=== PATIENT | female | born 1965 | race African-American/Black ===

== ENCOUNTER 2019-09-19 13:28 | Emergency (ER) | payer BC ==
[~2019-09-19] VITALS: Ht 165.1 cm; Wt 63.6 kg
[2019-09-19 14:16] LABS: BASO # 0.1 x10^3/uL (0.0-0.2); BASO % 1 % (0-3); EOS # 0.1 x10^3/uL (0.0-0.7); EOS % 1 % (0-3); HEMATOCRIT 40.1 % (36.0-47.0); HEMOGLOBIN 13.8 g/dL (12.0-15.5); LYMPH # 3.3 x10^3/uL (1.0-4.8); LYMPH % 41 % (24-48); MEAN CORPUSCULAR HEMOGLOBIN 32 pg (25-35); MEAN CORPUSCULAR HGB CONC 34 g/dL (31-37); MEAN CORPUSCULAR VOLUME 94 fL (79-100); MONO # 0.5 x10^3/uL (0.0-1.1); MONO % 6 % (0-9); NEUT % 51 % (31-73); PLATELET COUNT 361 x10^3/uL (140-400); RED BLOOD COUNT 4.27 x10^6/uL (3.50-5.40); RED CELL DISTRIBUTION WIDTH 12.7 % (11.5-14.5); WHITE BLOOD COUNT 7.9 x10^3/uL (4.0-11.0)
[2019-09-19 14:25] LABS: CALCIUM 9.5 mg/dL (8.5-10.1); CREATININE 0.7 mg/dL (0.6-1.0); GFR 87.2; POTASSIUM 3.7 mmol/L (3.5-5.1)
--- NOTE | 2019-09-19 14:31 | RAD ---
PORTABLE CHEST 1V History: Chest pain Comparison: None. Findings: Single view of the chest is submitted. There is no infiltrate, pneumothorax, or effusion. The pericardial cardiac silhouette is within normal limits in size. Impression: 1. There is no radiographic evidence of acute cardiopulmonary disease. Electronically signed by: Jasiel Chun MD (09/19/2019 2:28 PM) [facility]
[2019-09-19 14:33] LABS: ALBUMIN 3.8 g/dL (3.4-5.0); MAGNESIUM 1.9 mg/dL (1.8-2.4); TOTAL BILIRUBIN 0.3 mg/dL (0.2-1.0); TOTAL PROTEIN 7.5 g/dL (6.4-8.2)
[2019-09-19 15:58] VITALS: BP 136/86
[2019-09-19] MEDS ORDERED: IOHEXOL 350 MG/ML 100 ML VIAL. IV ONE (16:00)
[2019-09-19] MEDS ORDERED: CONTRAST GIVEN. MC PRN (16:15)
--- NOTE | 2019-09-19 16:35 | RAD ---
Examination: CT angiography chest HISTORY: History of chest pain, shortness of breath COMPARISON: None available Technique: Axial CT angiographic images of chest were performed with IV contrast. Coronal and sagittal 3-D MIP reformats are performed Exposure: One or more of the following individualized dose reduction techniques were utilized for this examination: 1. Automated exposure control 2. Adjustment of the mA and/or kV according to patient size 3. Use of iterative reconstruction technique FINDINGS: The visualized thyroid gland grossly appears unremarkable. Central airways are patent. Heart size grossly appears unremarkable. Aberrant right subclavian artery is identified. There is no evidence of filling defect identified in the main pulmonary arterial trunk and right and left main pulmonary arteries and the visualized lobar, segmental branch of the pulmonary arteries. Mild bibasilar lung airspace opacities likely atelectasis or infiltrates. The visualized liver, spleen, adrenals grossly appears unremarkable. Mild degenerative changes thoracic spine. IMPRESSION: 1. No evidence of pulmonary embolism. 2. Mild bibasilar lung airspace opacities likely atelectasis or infiltrates. Electronically signed by: Jsoh Peres MD (09/19/2019 4:32 PM) [id number]
[2019-09-19] MEDS ORDERED: LEVO750T31 PO (17:35)
--- NOTE | 2019-09-19 17:36 | PHYS DOC ---
Past Medical History Past Medical History: Anxiety, Depression, GERD, High Cholesterol, Other Additional Past Medical Histor: IBS Past Surgical History: Cholecystectomy, Hysterectomy Smoking Status: Former Smoker Alcohol Use: None General Adult EDM: Chief Complaint: CHEST PAIN HPI: HPI: Patient is a 54 year old female who presented to the hospital for evaluation of sharp chest pain with non productive cough with shortness air for about 3 days. The pain is intermittent , lasted for a few minutes, hurt worse with cough or taking a deep breath. Patient denied any fever, no recent sick contact. NO recent travel or operation. patient denied any family history of heart disease, no history of diabetic or CAD. Patient has history of anxiety and high cholesterol. Review of Systems: Review of Systems: Constitutional: Denies fever or chills. [] Eyes: Denies change in visual acuity. [] HENT: Denies nasal congestion or sore throat. [] Respiratory: Denies cough or shortness of breath. [] Cardiovascular: Denies chest pain or edema. [] GI: Denies abdominal pain, nausea, vomiting, bloody stools or diarrhea. [] : Denies dysuria. [] Musculoskeletal: Denies back pain or joint pain. [] Integument: Denies rash. [] Neurologic: Denies headache, focal weakness or sensory changes. [] Endocrine: Denies polyuria or polydipsia. [] Lymphatic: Denies swollen glands. [] Psychiatric: Denies depression or anxiety. [] Heart Score: HEART Score for Chest Pain: HEART Score for Chest Pain Response (Comments) Value History Slighlty/Non-Suspicious 0 ECG Normal 0 Age >45 - < 65 1 Risk Factors 1 or 2 Risk Factors 1 Troponin < Normal Limit 0 Total 2 Risk Factors: Risk Factors: DM, Current or recent (<one month) smoker, HTN, HLP, family history of CAD, obesity. Risk Scores: Score 0 - 3: 2.5% MACE over next 6 weeks - Discharge Home Score 4 - 6: 20.3% MACE over next 6 weeks - Admit for Clinical Observation Score 7 - 10: 72.7% MACE over next 6 weeks - Early Invasive Strategies Current Medications: Current Medications Medications (Trade) Dose Ordered Sig/Kendall Start Time Stop Time Status Last Admin Dose Admin Info (CONTRAST GIVEN -- Rx MONITORING) 1 each PRN DAILY PRN 09/19/19 16:15 09/21/19 16:14 Iohexol (Omnipaque 350 Mg/ml) 90 ml 1X ONCE 09/19/19 16:00 09/19/19 16:07 DC 09/19/19 16:00 90 ML Allergies: Allergies: Allergies Coded Allergies Type Severity Reaction Last Updated Verified medroxyprogesterone Adverse Reaction Intermediate 09/19/19 Yes metronidazole Adverse Reaction Intermediate 09/19/19 Yes Physical Exam: PE: Constitutional: Well developed, well nourished, no acute distress, non-toxic appearance. [] HENT: Normocephalic, atraumatic, bilateral external ears normal, oropharynx moist, no oral exudates, nose normal. [] Eyes: PERRLA, EOMI, conjunctiva normal, no discharge. [] Neck: Normal range of motion, no tenderness, supple, no stridor. [] Cardiovascular:Heart rate regular rhythm, no murmur [] Lungs & Thorax: Bilateral breath sounds clear to auscultation [] Abdomen: Bowel sounds normal, soft, no tenderness, no masses, no pulsatile masses. [] Skin: Warm, dry, no erythema, no rash. [] Back: No tenderness, no CVA tenderness. [] Extremities: No tenderness, no cyanosis, no clubbing, ROM intact, no edema. [] Neurologic: Alert and oriented X 3, normal motor function, normal sensory function, no focal deficits noted. [] Psychologic: Affect normal, judgement normal, mood normal. [] Current Patient Data: Labs: Laboratory Tests Test 09/19/19 13:35 White Blood Count 7.9 x10^3/uL (4.0-11.0) Red Blood Count 4.27 x10^6/uL (3.50-5.40) Hemoglobin 13.8 g/dL (12.0-15.5) Hematocrit 40.1 % (36.0-47.0) Mean Corpuscular Volume 94 fL (79-100) Mean Corpuscular Hemoglobin 32 pg (25-35) Mean Corpuscular Hemoglobin Concent 34 g/dL (31-37) Red Cell Distribution Width 12.7 % (11.5-14.5) Platelet Count 361 x10^3/uL (140-400) Neutrophils (%) (Auto) 51 % (31-73) Lymphocytes (%) (Auto) 41 % (24-48) Monocytes (%) (Auto) 6 % (0-9) Eosinophils (%) (Auto) 1 % (0-3) Basophils (%) (Auto) 1 % (0-3) Neutrophils # (Auto) 4.0 x10^3/uL (1.8-7.7) Lymphocytes # (Auto) 3.3 x10^3/uL (1.0-4.8) Monocytes # (Auto) 0.5 x10^3/uL (0.0-1.1) Eosinophils # (Auto) 0.1 x10^3/uL (0.0-0.7) Basophils # (Auto) 0.1 x10^3/uL (0.0-0.2) D-Dimer (Martina) < 0.27 ug/mlFEU Sodium Level 134 mmol/L (136-145) L Potassium Level 3.7 mmol/L (3.5-5.1) Chloride Level 98 mmol/L (98-107) Carbon Dioxide Level 24 mmol/L (21-32) Anion Gap 12 (6-14) Blood Urea Nitrogen 10 mg/dL (7-20) Creatinine 0.7 mg/dL (0.6-1.0) Estimated GFR (Cockcroft-Gault) 87.2 BUN/Creatinine Ratio 14 (6-20) Glucose Level 108 mg/dL (70-99) H Calcium Level 9.5 mg/dL (8.5-10.1) Magnesium Level 1.9 mg/dL (1.8-2.4) Total Bilirubin 0.3 mg/dL (0.2-1.0) Aspartate Amino Transferase (AST) 22 U/L (15-37) Alanine Aminotransferase (ALT) 24 U/L (14-59) Alkaline Phosphatase 53 U/L (46-116) Troponin I Quantitative < 0.017 ng/mL (0.000-0.055) XY-Ibv-Z-Type Natriuretic Peptide 33 pg/mL (0-124) Total Protein 7.5 g/dL (6.4-8.2) Albumin 3.8 g/dL (3.4-5.0) Albumin/Globulin Ratio 1.0 (1.0-1.7) Laboratory Tests 09/19/19 13:35 Laboratory Tests 09/19/19 13:35 Vital Signs: Vital Signs Date Time Temp Pulse Resp B/P (MAP) Pulse Ox O2 Delivery O2 Flow Rate FiO2 09/19/19 13:30 98.6 88 18 159/95 (116) 100 Room Air 98.6 EKG: EKG: EKG was done at 1336, heart rate of 79 bpm, sinus rhythm, left axis, no ST se gment elevation, normal QT interval. EKG was read by this physician. Radiology/Procedures: Radiology/Procedures: [][facility] [address] [place] [address] IMAGING REPORT Signed PATIENT: KUSH PAIZACCOUNT: [id number] : 1965 LOCATION: ER AGE: 54 SEX: F EXAM STATUS: REG ER ORD. PHYSICIAN: ERICKA RAMIREZ DO REASON: CHEST PAIN, SOA SINCE 2 DAYS PROCEDURE: CT ANGIOGRAPHY CHEST Examination: CT angiography chest HISTORY: History of chest pain, shortness of breath COMPARISON: None available Technique: Axial CT angiographic images of chest were performed with IV contrast. Coronal and sagittal 3-D MIP reformats are performed Exposure: One or more of the following individualized dose reduction techniques were utilized for this examination: 1. Automated exposure control 2. Adjustment of the mA and/or kV according to patient size 3. Use of iterative reconstruction technique FINDINGS: The visualized thyroid gland grossly appears unremarkable. Central airways are patent. Heart size grossly appears unremarkable. Aberrant right subclavian artery is identified. There is no evidence of filling defect identified in the main pulmonary arterial trunk and right and left main pulmonary arteries and the visualized lobar, segmental branch of the pulmonary arteries. Mild bibasilar lung airspace opacities likely atelectasis or infiltrates. The visualized liver, spleen, adrenals grossly appears unremarkable. Mild degenerative changes thoracic spine. IMPRESSION: 1. No evidence of pulmonary embolism. 2. Mild bibasilar lung airspace opacities likely atelectasis or infiltrates. Electronically signed by: Josh Peres MD (09/19/2019 4:32 PM) [id number] DICTATED and SIGNED BY: JOSH PERES MD DATE: 09/19/19 1632 Course & Med Decision Making: Course & Med Decision Making Pertinent Labs and Imaging studies reviewed. (See chart for details) CHEST PAIN, NONSPECIFIC: The patient presents today with chest pain lasting for a few minutes. The quality of the pain is very atypical for acute coronary syndrome. Additionally, the patient has minimal risk factors for coronary artery disease with a suggestion of good exercise tolerance and does not have ongoing chest pain. Given the duration of the chest pain with cardiac enzymes returning within normal limits, I do feel that from a risk stratification standpoint, the patient can be safely discharged home for outpatient evaluation by the primary care physician. The patient, however, fully understands that the evaluation today in no way rules out coronary artery disease as a possibility and that close followup is necessary as a component of a complete evaluation. The patient also understands that should the pain change, or become more frequent, more intense, or should the patient develop new symptoms, the patient is instructed to return immediately to the emergency room for reevaluation. However, at this time, given the lack of significant risk factors in conjunction with an atypical history in conjunction with normal enzymes despite the duration of pain and an unchanged or normal EKG, I do feel that the information available to us at this time suggests that this is unlikely to represent acute plaque rupture and that the risk of morbidity or mortality is low. Also considered today was the possibility of a pneumothorax, pneumonia, pulmonary embolus, mediastinitis, and thoracic aortic dissection. However, after careful consideration of the patient's clinical history and presentation and findings, there is no evidence to suggest any of these as a likely diagnosis and therefore feel that the continued pursuit of these etiologies is not warranted at this time. Therese Disclaimer: Therese Disclaimer: This electronic medical record was generated, in whole or in part, using a voice recognition dictation system. Departure Departure Impression: Primary Impression: Chest pain Additional Impression: Pneumonia Disposition: 01 HOME, SELF-CARE Condition: STABLE Referrals: ZOHRA CAMERON MD (PCP) please follow up with your doctor for reevaluation in two days Patient Instructions: Chest Pain (Nonspecific), Pneumonia, Adult Additional Instructions: Thank you for visiting our Emergency Department. We appreciate you trusting us with your care. If any additional problems come up don't hesitate to return to visit us. Please follow up with your primary care provider so they can plan additional care if needed and know about the problem that you had. If symptoms worsen come back to the Emergency Department. Any concerning symptoms that start such as chest pain, shortness of air, weakness or numbness on one side of the body, running high fevers or any other concerning symptoms return to the ER. Scripts Levofloxacin (LEVAQUIN) 750 Mg Tablet 1 TAB PO DAILY for 5 Days, #5 TAB 0 Refills Prov: ERICKA RAMIREZ DO 09/19/19 ERICKA RAMIREZ DO September 19, 2019 17:36
--- NOTE | 2019-09-20 07:30 | EKG ---
[facility] [address] [place] [address] Test Date: 2019-09-19 Test Time: 13:36:18 Pat Name: KUSH PAIZ Department: Room: Gender: F [employer]ity Officer: : 1965 Requested By: ERICKA RAMIREZ Order Number: [id number] Reading MD: Simeon Lewis MD Measurements Intervals [place] Rate: 79 P: 41 VT: 138 QRS: -9 QRSD: 66 T: 19 QT: 370 QTc: 430 Interpretive Statements SINUS RHYTHM Electronically Signed On 09-20-2019 9:28:34 CDT by Simeon Lewis MD
== END 2019-09-19 17:45 | disposition home or self-care (01) ==
LOC: ER 13:28
DX: J18.9 Pneumonia, unspecified organism (principal); R07.89 Other chest pain; R20.2 Paresthesia of skin; F41.9 Anxiety disorder, unspecified; F32.9 Major depressive disorder, single episode, unspecified; K21.9 Gastro-esophageal reflux disease without esophagitis; E78.00 Pure hypercholesterolemia, unspecified; K58.9 Irritable bowel syndrome, unspecified; Z90.49 Acquired absence of other specified parts of digestive tract; Z90.710 Acquired absence of both cervix and uterus; Z87.891 Personal history of nicotine dependence; Z88.8 Allergy status to other drugs, medicaments and biological substances
CPT/HCPCS: 36415; 71045; 71275; 80053; 83735; 83880; 84484; 85025; 85379; 93005; 99285; Q9967